=== PATIENT | male | born 1995 | race Caucasian/White ===

== ENCOUNTER 2021-01-10 18:50 | Emergency (ER) | payer OTHER ==
[2021-01-10 19:47] LABS: BASOPHIL 0.4 % (0-2); EOSINOPHIL 0.7 % (0-5); HCT 42.5 % (42.0-52.0); HGB 14.1 g/dl (13.2-18.0); LYMPHOCYTE 16.1 % (15-48); MCH 28.5 pg (25.0-31.0); MCHC 33.2 g/dL (32.0-36.0); MCV 85.9 fL (78.0-100.0); NEUTROPHIL 70.4 % (41-80); NRBC 0; PLT 487 K/uL (150-400); RBC 4.95 M/uL (4.70-6.00); RDW 12.3 % (11.5-14.0); WBC 17.1 K/uL (4.0-10.5)
[2021-01-10 19:53] LABS: MONOCYTE 12.1 % (0-12)
[2021-01-10 20:05] LABS: ALBUMIN 3.5 g/dL (3.4-5.0); BILIRUBIN - TOTAL 0.5 mg/dL (0.2-1.0); BUN/CREAT RATIO (CALC) 6.3 RATIO; CREATININE 0.79 mg/dL (0.67-1.17); GLOBULIN (CALCULATION) 5.1 g/dL; POTASSIUM 3.7 mmol/L (3.5-5.1); TOTAL PROTEIN 8.6 g/dL (6.4-8.2)
== END 2021-01-10 22:46 | disposition other institution (70) ==
LOC: FER 18:50
PROVIDERS: Emergency Medicine
DX: J36 Peritonsillar abscess (principal); J98.8 Other specified respiratory disorders; F17.210 Nicotine dependence, cigarettes, uncomplicated
CPT/HCPCS: 36415; 70491; 80053; 85025; 94640; J1100; J1170; J2405; J7030; Q9967

== ENCOUNTER 2021-04-06 11:23 | Emergency (ER) | payer OTHER | END 2021-04-06 12:48 | disposition home or self-care (01) | LOC: FER 11:23 | DX: S93.401A Sprain of unspecified ligament of right ankle, initial encounter (principal); M79.671 Pain in right foot; F17.290 Nicotine dependence, other tobacco product, uncomplicated; Z88.0 Allergy status to penicillin; W21.00XA Struck by hit or thrown ball, unspecified type, initial encounter; Y92.830 Public park as the place of occurrence of the external cause | CPT/HCPCS: 73610; 73630 ==